=== PATIENT | female | born 1970 | race Caucasian/White ===

== ENCOUNTER 2017-08-23 12:28 | Emergency (ER) | payer OTHER ==
--- NOTE | 2017-08-23 12:50 | ED ---
General Adult HPI - General Stated complaint: EPS med refill Time Seen by Provider: 08/23/17 12:30 Source: RN notes reviewed - History of Present Illness Initial comments: This is a 47-year-old female with past medical history significant for bipolar and PTSD. Patient comes in stating she's and 6 medications that she has been out of for 3-5 days and she is unable to get them filled. Patient states she moved from [facility] to [facility] is [facility] won't see her at this time and told to go to when he are to get her medications refilled. Patient states she's no suicidal or homicidal she is not depressed or anxious at the moment she states she just doesn't want to have any symptoms or breakdown. Patient states she's just here without complaints to get her meds refilled. Patient states her next available appointment for a medication review is 1 month away. Patient denies any physical complaints today. Patient denies any headache patient denies numbness weakness. Patient denies chest pain palpitations difficulty breathing. Patient denies any recent fever chills or cough. Patient denies abdominal pain patient denies nausea vomiting diarrhea. - Related Data Home Medications Medication Instructions Recorded Confirmed Acetaminophen [Tylenol] 325 mg PO Q4H PRN 08/23/17 08/23/17 Desvenlafaxine Succinate 50 mg PO DAILY 08/23/17 08/23/17 [Desvenlafaxine Succinate ER] OLANZapine [ZyPREXA] 10 mg PO HS 08/23/17 08/23/17 [place] 1 dose PO DAILY 08/23/17 08/23/17 Prazosin [Minipress] 1 mg PO HS 08/23/17 08/23/17 buPROPion XL [Wellbutrin Xl] 150 mg PO DAILY 08/23/17 08/23/17 busPIRone HCl [Buspar] 20 mg PO TID 08/23/17 08/23/17 lamoTRIgine [LaMICtal] 200 mg PO DAILY 08/23/17 08/23/17 Allergies Allergy/AdvReac Type Severity Reaction Status Date / Time ibuprofen [From Motrin IB] Allergy Unknown Verified 08/23/17 13:00 Review of Systems ROS Statement: Those systems with pertinent positive or pertinent negative responses have been documented in the HPI. ROS Other: All systems not noted in ROS Statement are negative. General Exam - General Exam Comments Initial Comments: GENERAL: Patient is well-developed and well-nourished. Patient is nontoxic and well- hydrated and is in no acute distress. ENT: Neck is soft and supple. No significant lymphadenopathy is noted. Neck has full range of motion without eliciting any pain. EYES: The sclera were anicteric and conjunctiva were pink and moist. Extraocular movements were intact and pupils were equal round and reactive to light. Eyelids were unremarkable. SKIN: Skin is clear with no lesions or rashes and otherwise unremarkable. NEUROLOGIC: Patient is alert and oriented x3. Cranial nerves II through XII are grossly intact. Motor and sensory are also intact. Normal speech, volume and content. Symmetrical smile. MUSCULOSKELETAL: Normal extremities with adequate strength and full range of motion. LYMPHATICS: No significant lymphadenopathy is noted PSYCHIATRIC: Normal psychiatric evaluation. Normal interpersonal interactions appears functionally intact in deals appropriately with others. No signs of depression. No signs of anxiety. Course Vital Signs 08/23/17 12:44 Temperature 97.1 F L Pulse Rate 102 H Respiratory 18 Rate Blood Pressure 153/92 O2 Sat by Pulse 99 Oximetry Medical Decision Making - Medical Decision Making EPS came down and spoke with the patient patient had no follow-up scheduled and the psychiatrist recommended that we not give her her medications because he is no definitive appointment for her to get her prescription refilled in the future she will be referred to [facility] and her primary medical care doctor. Disposition Clinical Impression: Encounter for medication refill Disposition: HOME SELF-CARE Condition: Good Additional Instructions: Patient should follow-up at [facility] Is patient prescribed a controlled substance at d/c from ED?: No Referrals: Nonstaff,Physician [Primary Care Provider] - 1-2 days Time of Disposition: 13:52
[2017-08-23 12:57] VITALS: RESP 18
[2017-08-23 14:03] VITALS: BP 141/90; PULSE 81; TEMP 98.4
== END 2017-08-23 14:06 | disposition home or self-care (01) ==
LOC: EC 12:28
DX: Z76.0 Encounter for issue of repeat prescription (principal); F31.9 Bipolar disorder, unspecified; F43.10 Post-traumatic stress disorder, unspecified; Z79.899 Other long term (current) drug therapy; Z88.6 Allergy status to analgesic agent
CPT/HCPCS: 99281

== ENCOUNTER 2020-07-26 12:48 | Emergency (ER) | payer OTHER ==
[2020-07-26 12:53] VITALS: TEMP 98
[2020-07-26] MEDS ORDERED: ONDANSETRON 4 MG/2 ML VIAL IVP STA (13:38)
[2020-07-26] MEDS ORDERED: SODIUM CHLORIDE 0.9% 1,000 ML IV STA (13:38)
--- NOTE | 2020-07-26 13:43 | ED ---
Nausea/Vomiting/Diarrhea HPI - General Chief complaint: Nausea/Vomiting/Diarrhea Stated complaint: Vomiting Time Seen by Provider: 07/26/20 13:02 Source: patient, family, RN notes reviewed Mode of arrival: ambulatory Limitations: no limitations - History of Present Illness Initial comments: 50-year-old white female patient presents to the emergency room with a friend complaining of nausea vomiting and diarrhea since 6:00 this morning. Patient states that she's had over 10 episodes of watery emesis and diarrhea. Patient states she received her Covid vaccine last Tuesday, has been feeling weak since. States had episode of vomiting and diarrhea on Tuesday and Tuesday, was better on and Tuesday but started again with vomiting this morning at 6 AM. Patient states has history of asthma, hypertension, fibromyalgia. States pain is 10 out of 10. Denies fevers, hematochezia or hematemesis. MD complaint: nausea, vomiting, diarrhea -: days(s) (, Tuesday, Tuesday and all day Today) Description of Vomiting: watery Description of Diarrhea: water Associated Abdominal Pain: Yes Location: diffuse Radiation: none Severity: severe Severity scale (1-10): 10 Quality: cramping Consistency: intermittent Improves with: none Worsens with: eating, other (drinking) Context: other (covid vaccine Tuesday last week) Associated Symptoms: nausea/vomiting, weakness - Related Data Home Medications Medication Instructions Recorded Confirmed Prazosin [Minipress] 1 mg PO HS 08/23/17 07/26/20 busPIRone HCl [Buspar] 20 mg PO TID 08/23/17 07/26/20 lamoTRIgine [LaMICtal] 200 mg PO DAILY 08/23/17 07/26/20 Albuterol Sulfate [Proair Hfa] 1 - 2 puff INHALATION RT-Q6H PRN 07/26/20 07/26/20 Cetirizine HCl 10 mg PO DAILY 07/26/20 07/26/20 Citalopram Hydrobromide [CeleXA] 40 mg PO DAILY 07/26/20 07/26/20 Cyclobenzaprine [Flexeril] 10 mg PO Q8H 07/26/20 07/26/20 Fluticasone Propionate [Flovent 1 puff INHALATION RT-BID 07/26/20 07/26/20 Hfa 44 mcg] Montelukast [Singulair] 10 mg PO DAILY 07/26/20 07/26/20 Pregabalin [Lyrica] 100 mg PO TID 07/26/20 07/26/20 buPROPion HCL [Wellbutrin XL] 300 mg PO DAILY 07/26/20 07/26/20 clonazePAM [KlonoPIN] 0.5 mg PO BID 07/26/20 07/26/20 lisinopriL [Zestril] 5 mg PO DAILY 07/26/20 07/26/20 Allergies Allergy/AdvReac Type Severity Reaction Status Date / Time ibuprofen [From Motrin IB] Allergy Unknown Verified 07/26/20 16:17 Review of Systems ROS Statement: Those systems with pertinent positive or pertinent negative responses have been documented in the HPI. ROS Other: All systems not noted in ROS Statement are negative. Past Medical History Past Medical History: Asthma, Hypertension Additional Past Medical History / Comment(s): pt currently being worked for inflammed lumph nodes in her abd, fibromyaglia History of Any Multi-Drug Resistant Organisms: None Reported Past Surgical History: Section, Orthopedic Surgery Additional Past Surgical History / Comment(s): Spinal fusion Past Psychological History: Bipolar, PTSD Smoking Status: Former smoker Past Alcohol Use History: None Reported Past Drug Use History: Marijuana General Exam Limitations: no limitations General appearance: alert, in no apparent distress Head exam: Present: atraumatic, normocephalic, normal inspection Eye exam: Present: normal appearance, PERRL, EOMI. Absent: scleral icterus, conjunctival injection, periorbital swelling ENT exam: Present: normal exam, normal oropharynx, mucous membranes moist Neck exam: Present: normal inspection, full ROM. Absent: tenderness, mening ismus, lymphadenopathy Respiratory exam: Present: normal lung sounds bilaterally. Absent: respiratory distress, wheezes, rales, rhonchi, stridor Cardiovascular Exam: Present: regular rate, normal rhythm, normal heart sounds. Absent: systolic murmur, diastolic murmur, rubs, gallop, clicks GI/Abdominal exam: Present: soft, normal bowel sounds. Absent: distended, tenderness, guarding, rebound, rigid, mass, hernia Extremities exam: Present: normal inspection, full ROM, normal capillary refill. Absent: tenderness, pedal edema, joint swelling, calf tenderness Back exam: Present: normal inspection, full ROM, tenderness. Absent: muscle spasm, paraspinal tenderness, vertebral tenderness, rash noted Neurological exam: Present: alert, oriented X3, CN II-XII intact Psychiatric exam: Present: normal affect, normal mood Skin exam: Present: warm, dry, intact, normal color. Absent: rash, cyanosis, diaphoretic, erythema, petechiae, pallor, mottled Course Vital Signs 07/26/20 07/26/20 12:49 15:53 Temperature 98 F Pulse Rate 76 90 Respiratory 20 18 Rate Blood Pressure 135/90 174/97 O2 Sat by Pulse 98 97 Oximetry Medical Decision Making - Medical Decision Making WBC count of 16.1 with neutrophil count of 14.4, ketones in the urine, patient was given 1 L bolus. X-ray shows bowel gas with a gas bubble, gastroenteritis versus ileus. CT abdomen shows no free air and no obstruction in the appendix normal. Patient received relief with Zofran IV fluids and droperidol. Patient comfortable being discharged home and following up with primary care doctor. Case discussed with Dr. Calixto who is agreeable to this plan. - Lab Data Result diagrams: 07/26/20 13:55 07/26/20 13:55 Lab Results 07/26/20 07/26/20 07/26/20 Range/Units 13:55 13:55 15:47 WBC 16.1 H (3.8-10.6) k/uL RBC 4.62 (3.80-5.40) m/uL Hgb 14.4 (11.4-16.0) gm/dL Hct 41.5 (34.0-46.0) % MCV 89.9 (80.0-100.0) fL MCH 31.1 (25.0-35.0) pg MCHC 34.6 (31.0-37.0) g/dL RDW 12.1 (11.5-15.5) % Plt Count 346 (150-450) k/uL MPV 6.9 Neutrophils % 90 % Lymphocytes % 5 % Monocytes % 3 % Eosinophils % 1 % Basophils % 0 % Neutrophils # 14.4 H (1.3-7.7) k/uL Lymphocytes # 0.8 L (1.0-4.8) k/uL Monocytes # 0.5 (0-1.0) k/uL Eosinophils # 0.2 (0-0.7) k/uL Basophils # 0.1 (0-0.2) k/uL Sodium 140 (137-145) mmol/L Potassium 4.3 (3.5-5.1) mmol/L Chloride 110 H (98-107) mmol/L Carbon Dioxide 20 L (22-30) mmol/L Anion Gap 10 mmol/L BUN 13 (7-17) mg/dL Creatinine 0.79 (0.52-1.04) mg/dL Est GFR (CKD-EPI)AfAm >90 (>60 ml/min/1.73 sqM) Est GFR (CKD-EPI)NonAf 89 (>60 ml/min/1.73 sqM) Glucose 171 H (74-99) mg/dL Calcium 10.7 H (8.4-10.2) mg/dL Total Bilirubin 0.8 (0.2-1.3) mg/dL AST 21 (14-36) U/L ALT 19 (4-34) U/L Alkaline Phosphatase 93 (38-126) U/L Total Protein 7.6 (6.3-8.2) g/dL Albumin 4.8 (3.5-5.0) g/dL Amylase 49 (30-110) U/L Lipase 72 (23-300) U/L Urine Color Yellow Urine Appearance Clear (Clear) Urine pH 8.5 H (5.0-8.0) Ur Specific [place] 1.044 H (1.001-1.035) Urine Protein Negative (Negative) Urine Glucose (UA) Negative (Negative) Urine Ketones 3+ H (Negative) Urine Blood Negative (Negative) Urine Nitrite Negative (Negative) Urine Bilirubin Negative (Negative) Urine Urobilinogen <2.0 (<2.0) mg/dL Ur Leukocyte Esterase Negative (Negative) Disposition Clinical Impression: Gastroenteritis Disposition: HOME SELF-CARE Condition: Fair Instructions (If sedation given, give patient instructions): Acute Nausea and Vomiting (ED), Acute Diarrhea (ED) Additional Instructions: Follow-up with the primary care doctor next week, take medication as prescribed Is patient prescribed a controlled substance at d/c from ED?: No Referrals: Nonstaff,Physician [Primary Care Provider] - 1-2 days Time of Disposition: 16:38
[2020-07-26 14:12] LABS: ALT 19 U/L (4-34); AST 21 U/L (14-36); African American GFR (CKD) >90 (>60 ml/min/1.73 sqM); Albumin 4.8 g/dL (3.5-5.0); Alkaline Phosphatase 93 U/L (38-126); Amylase 49 U/L (30-110); Anion Gap 10 mmol/L; Blood Urea Nitrogen 13 mg/dL (7-17); Calcium 10.7 mg/dL (8.4-10.2); Carbon Dioxide 20 mmol/L (22-30); Chloride 110 mmol/L (98-107); Glucose 171 mg/dL (74-99); Lipase 72 U/L (23-300); Non-African American GFR(CKD) 89 (>60 ml/min/1.73 sqM); Potassium 4.3 mmol/L (3.5-5.1); Sodium 140 mmol/L (137-145); Total Bilirubin 0.8 mg/dL (0.2-1.3); Total Protein 7.6 g/dL (6.3-8.2)
--- NOTE | 2020-07-26 14:16 | XR ---
EXAMINATION TYPE: XR KUB DATE OF EXAM: 07/26/2020 COMPARISON: NONE HISTORY: Nausea and vomiting TECHNIQUE: One view abdominal series FINDINGS: The osseous structures are intact. The bowel gas pattern is nonspecific. Post surgical change lower lumbosacral spine. Degenerative changes of the spine. The gastric bubble is distended. There is a [place] of bowel gas. IMPRESSION: 1. Paucity of bowel gas with distended gastric bubble. Correlate for enteritis, gastroenteritis, ileu s, or partial obstruction.
[2020-07-26 14:22] LABS: Basophils # (A) 0.1 k/uL (0-0.2); Basophils % (A) 0 %; Eosinophils # (A) 0.2 k/uL (0-0.7); Eosinophils % (A) 1 %; HCT 41.5 % (34.0-46.0); HGB 14.4 gm/dL (11.4-16.0); Lymphocytes # (A) 0.8 k/uL (1.0-4.8); Lymphocytes % (A) 5 %; MCH 31.1 pg (25.0-35.0); MCHC 34.6 g/dL (31.0-37.0); MCV 89.9 fL (80.0-100.0); Mean Platelet Volume 6.9; Monocytes # (A) 0.5 k/uL (0-1.0); Monocytes % (A) 3 %; Neutrophils # (A) 14.4 k/uL (1.3-7.7); Neutrophils % (A) 90 %; Platelet Count 346 k/uL (150-450); RBC 4.62 m/uL (3.80-5.40); RDW 12.1 % (11.5-15.5); WBC 16.1 k/uL (3.8-10.6)
[2020-07-26] MEDS ORDERED: MORPHINE SULFATE 2 MG/ML SYRINGE IVP STA (14:37)
[2020-07-26 15:55] VITALS: BP 174/97; PULSE 90; RESP 18
[2020-07-26 15:57] LABS: Appearance,Urine Clear (Clear); Bilirubin,Urine Negative (Negative); Blood,Urine Negative (Negative); Color,Urine Yellow; Glucose,Urine (UA) Negative (Negative); Ketones,Urine 3+ (Negative); Leukocyte Esterase,Urine Negative (Negative); Nitrite,Urine Negative (Negative); PH, Urine 8.5 (5.0-8.0); Protein,Urine Negative (Negative); Specific Gravity,Urine 1.044 (1.001-1.035); Urobilinogen,Urine <2.0 mg/dL (<2.0)
--- NOTE | 2020-07-26 16:15 | CT ---
EXAMINATION TYPE: CT abdomen pelvis w con DATE OF EXAM: 07/26/2020 COMPARISON: HISTORY: Generalized pain with vomiting and diarrhea. Post COVID vaccine x's [address] DLP: 1101 mGycm Automated exposure control for dose reduction was used. CONTRAST: Performed with IV Contrast, patient injected with 100 mL of Isovue 300. Images obtained from the diaphragm to the floor the pelvis with IV contrast. There is some mild atelectasis at the lung bases. Heart size is normal. There is no pericardial effus ion. Liver spleen stomach pancreas gallbladder appear normal. The bile ducts are not dilated. There is no adrenal mass. Kidneys show satisfactory contrast opacification. There is no hydronephrosi s. There is no retroperitoneal adenopathy. Bladder distends smoothly. There is no inguinal hernia. Ur eters are not dilated. Delayed images show normal renal excretion. There is no evidence of a pelvic mass. Uterus is anteverted. There is no free fluid in the pelvis. There is no mesenteric edema. There is no ascites or free air. There is no bowel obstruction. Appendi x is medial and appears normal. The lumbar vertebra have normal alignment. There is disc space narrowing at L4-5 and L5-S1 with disc prosthesis. There is narrowing of disc spaces from L2 to S1 with sclerosis and spurring. The posterio r elements are intact. The bony pelvis is intact. Hip joints are intact. IMPRESSION: Negative CT scan abdomen and pelvis. Normal appendix. Multilevel lumbar moderate spondylotic changes noted.
[2020-07-26] MEDS ORDERED: ONDANSETRON 4 MG ODT STARTER PACK 2 TAB BTL PO STA (16:39)
== END 2020-07-26 16:53 | disposition home or self-care (01) ==
LOC: EC 12:48
DX: K52.9 Noninfective gastroenteritis and colitis, unspecified (principal); J45.909 Unspecified asthma, uncomplicated; I10 Essential (primary) hypertension; F31.9 Bipolar disorder, unspecified; F12.90 Cannabis use, unspecified, uncomplicated; Z87.891 Personal history of nicotine dependence; Z79.899 Other long term (current) drug therapy; Z79.51 Long term (current) use of inhaled steroids
CPT/HCPCS: 36415; 80053; 82150; 83690; 85025; 81003; 74018; 74177; 99285; 96374; 96375 ×2; J2405; J2270; S0119; Q9967; J1790

== ENCOUNTER → 2023-08-02 | Outpatient (CLI) | payer MEDICARE, OTHER ==
--- NOTE | 2023-08-04 06:17 | MR ---
EXAMINATION TYPE: MR shoulder RT wo con DATE OF EXAM: 08/02/2023 COMPARISON: None. HISTORY: Right shoulder pain with difficulty raising arm overhead for 2 years. TECHNIQUE: Multiplanar, multisequence imaging of the right shoulder is performed without contrast. FINDINGS: Rotator Cuff: Intact supraspinatus and infraspinatus tendons. Heterogeneous but intact subscapularis tendon. Some mild to minimal atrophy of the supraspinatus muscle bulk. Some mild to moderate generali zed atrophy of the subscapularis muscle. Acromioclavicular Joint: Mild narrowing and capsular hypertrophy. Ssor-cm-xamnldpk spurring. Glenohumeral Joint: Advanced narrowing is seen. There is loss of spherical shape to the humeral head. There is artifact from prior rotator cuff tendon repair surgery noted. Extensive septated fluid jose e g the peripheral anterior portion of the humeral head. Labrum: Heterogeneous increased signal superior labrum consistent with degenerative tear. Biceps Tendon: The long head of biceps is in normal location within bicipital groove. Heterogeneous i ncreased signal intracapsular portion Bone marrow signal: No diminished T1 and increased T2 signal involving the superior medial humeral he ad at the articular surface with similar findings seen in the adjacent osseous glenoid. Other: No additional significant abnormality is appreciated. IMPRESSION: Advanced AC joint arthropathy is seen as detailed above. Degenerative superior labral tea r is noted.
== END | disposition home or self-care (01) ==
LOC: RADMRIMAIN 17:46
PROVIDERS: ATTEND Orthopaedic Surgery
DX: M19.011 Primary osteoarthritis, right shoulder (principal); M75.101 Unspecified rotator cuff tear or rupture of right shoulder, not specified as traumatic